=== PATIENT | female | born 1935 | race Caucasian/White ===

== ENCOUNTER 2017-09-24 05:29 | Day surgery (SDC) | payer MEDICARE, OTHER ==
[2017-09-22 13:10] LABS: BASOPHILS % (AUTO) 0.6 % (0-1); EOSINOPHILS # (AUTO) 0.2 X10'3 (0-0.9); EOSINOPHILS % (AUTO) 2.9 % (0-6); HEMOGLOBIN 13.4 g/dl (12.0-16.0); LYMPHOCYTES # (AUTO) 1.9 X10'3 (1.1-4.8); MEAN CORPUSCULAR HEMOGLOBIN 33.8 PG (27.0-31.0); MEAN CORPUSCULAR HGB CONC 34.3 % (33.0-36.5); MEAN CORPUSCULAR VOLUME 98.5 FL (78-98); MEAN PLATELET VOLUME 8.1 FL (7.4-10.4); MONOCYTES # (AUTO) 0.9 X10'3 (0-0.9); MONOCYTES % (AUTO) 11.8 % (2-12); NEUTROPHILS # (AUTO) 4.6 X10'3 (1.8-7.7); NEUTROPHILS % (AUTO) 59.7 % (42-75); PLATELET COUNT 222 X10'3 (140-440); RED BLOOD COUNT 3.96 X10'6 (4.20-5.60); RED CELL DISTRIBUTION WIDTH 13.6 % (11.5-14.5); WHITE BLOOD COUNT 7.7 X10'3 (4.5-11.0)
[2017-09-22 13:21] LABS: INR 1.3 INR; PARTIAL THROMBOPLASTIN TIME 26 SECONDS (22-32); PROTHROMBIN TIME 13.1 SECONDS (9.0-12.0)
[2017-09-22 13:26] LABS: ALANINE AMINOTRANSFERASE 36 U/L (12-78); ALBUMIN 3.6 G/DL (3.4-5.0); ALKALINE PHOSPHATASE 42 IU/L (46-116); ANION GAP 7 (8-16); ASPARTATE AMINO TRANSFERASE 21 U/L (10-37); BILIRUBIN,TOTAL 0.4 MG/DL (0.1-1.0); BLOOD UREA NITROGEN 19 MG/DL (7-18); CALCIUM 8.6 MG/DL (8.5-10.1); CHLORIDE 107 MMOL/L (99-107); GLUCOSE 98 MG/DL (70-104); POTASSIUM 4.4 MMOL/L (3.5-5.1); SODIUM 141 MMOL/L (135-145); TOTAL PROTEIN 7.1 G/DL (6.4-8.2); eGFR 53 ML/MIN
[~2017-09-24] VITALS: Ht 170.2 cm; Wt 83.2 kg
[2017-09-24] VITALS (12 sets, daily range): BP systolic 130–161; BP diastolic 72–110
[~2017-09-24 05:29] MED LIST: ALBU8.5H4 IH; CALC-787 PO; DRON400T2 PO; DRON400T6 PO; FURO-150 PO; GLUC-150 PO; HYDR-569 PO; LISI10TA4 PO; LOTE5DRO4 EACHEYE; METO-384 PO; MONT10TA21 PO; PANT40TA39 PO; ROSU5TAB18 PO; TRAM50TA2 PO; WARF3TAB7 PO
[2017-09-24] MEDS ORDERED: nitroGLYCERIN 0.4mg SUBLingual tab SL PRN (06:15)
[2017-09-24] MEDS ORDERED: normal saline 1000ml 1,000 ML IV SCH (06:15)
[2017-09-24] MEDS ORDERED: LORazepam 0.5 MG tablet PO PRN (06:15)
[2017-09-24] MEDS ORDERED: methylPREDNISolone sod succ 125mg/2ml vial IV PRN (06:15)
[2017-09-24] MEDS ORDERED: diphenhydrAMINE 25mg capsule PO PRN (06:15)
[2017-09-24] MEDS ORDERED: ROSU5TAB PO (06:19)
[2017-09-24] MEDS ORDERED: ESTR1VAG VG (06:19)
[2017-09-24] MEDS ORDERED: NIT5P TD (06:24)
[2017-09-24] MEDS ORDERED: ASCO1TAB42 PO (06:24)
[2017-09-24] MEDS ORDERED: PRED20TA PO (06:24)
[2017-09-24] MEDS ORDERED: ASCO-407 PO (06:24)
[2017-09-24] MEDS ORDERED: MAGN400C PO (06:24)
[2017-09-24] MEDS ORDERED: NORMAL SALINE IV ONE (08:00)
[2017-09-24] MEDS ORDERED: METHYLPREDNISOLONE SOD SUCC IV ONE (08:00)
[2017-09-24] MEDS ORDERED: fentaNYL/PF 50MCG/1 ML 2ML syringe ONE (08:22)
[2017-09-24] MEDS ORDERED: iohexol 350MG/ML 100ml bottle IV ONE (08:22)
[2017-09-24] MEDS ORDERED: iohexol 350 MG/ML 50ML vial IV ONE (08:22)
[2017-09-24] MEDS ORDERED: heparin 1,000 UNITS/NS 500ml 500 ML ONE (08:22)
[2017-09-24] MEDS ORDERED: midazolam 2 mg/2 ml injection ONE (08:22)
[2017-09-24] MEDS ORDERED: LIDOcaine 1% 30ml vial 30 ML ONE (08:23)
[2017-09-24] MEDS ORDERED: heparin 1,000unit/ml 10ml vial 10 ML ONE (08:51)
[2017-09-24] MEDS ORDERED: ondansetron/PF 4mg/2ml inj IV PRN (11:15)
[2017-09-24] MEDS ORDERED: OXAZEpam 15mg capsule PO PRN (11:15)
[2017-09-24] MEDS ORDERED: proCHLORperazine 10 MG/2 ml inj IV PRN (11:15)
[2017-09-24] MEDS ORDERED: sodium chloride 0.45% 1,000 ML IV SCH (11:20)
[2017-09-24] MEDS ORDERED: ACETYLCYSTEINE 200 MG/1 ML 4 ML ORAL SOLUTION PO SCH (20:00)
== END 2017-09-24 16:02 | disposition home or self-care (01) ==
LOC: SSTAY O 05:29
PROVIDERS: ATTEND Internal Medicine Cardiovascular Disease
DX: I25.10 Atherosclerotic heart disease of native coronary artery without angina pectoris (principal); I34.8 Other nonrheumatic mitral valve disorders; G43.909 Migraine, unspecified, not intractable, without status migrainosus; I48.91 Unspecified atrial fibrillation
CPT/HCPCS: 36415; 71046; 80053; 83880; 85025; 85610; 85730; 93459; A6257; C1760; C1769; J1644; J2250; J2930; J3010; J3490; J7030; Q0163; Q9967; 99152; A4620

== ENCOUNTER 2020-12-07 06:04 | Inpatient (IN) | payer MEDICARE, OTHER ==
[2020-11-30 16:41] LABS: BASOPHILS # (AUTO) 0.1 X10'3 (0-0.2); BASOPHILS % (AUTO) 0.7 % (0-1); EOSINOPHILS # (AUTO) 0.2 X10'3 (0-0.9); EOSINOPHILS % (AUTO) 2.6 % (0-6); LYMPHOCYTES # (AUTO) 1.7 X10'3 (1.1-4.8); LYMPHOCYTES % (AUTO) 22.8 % (21-51); MEAN CORPUSCULAR HEMOGLOBIN 34.4 PG (27.0-31.0); MEAN CORPUSCULAR HGB CONC 34.6 g/dL (33.0-36.5); MEAN CORPUSCULAR VOLUME 99.5 FL (78-98); MEAN PLATELET VOLUME 8.4 FL (7.4-10.4); MONOCYTES % (AUTO) 12.8 % (2-12); NEUTROPHILS # (AUTO) 4.7 X10'3 (1.8-7.7); NEUTROPHILS % (AUTO) 61.1 % (42-75); PRE OP HEMATOCRIT 37.5 % (35.0-45.0); PRE OP PLATELET COUNT 246 X10'3 (140-440); RED BLOOD COUNT 3.77 X10'6 (4.20-5.60); RED CELL DISTRIBUTION WIDTH 12.8 % (11.5-14.5)
[2020-11-30 16:56] LABS: PRE OP PROTIME 10.4 SECONDS (9.0-12.0)
[2020-11-30 17:01] LABS: BLOOD UREA NITROGEN 17 MG/DL (7-18); BUN/CREATININE RATIO 19.8 (6.6-38.0); CALCIUM 8.2 MG/DL (8.5-10.1); CHLORIDE 103 MMOL/L (99-107); CREATININE 0.86 MG/DL (0.40-0.90); TOTAL CARBON DIOXIDE 26.6 MMOL/L (24-32); eGFR 63 ML/MIN
[2020-11-30 17:02] LABS: ALBUMIN 3.6 G/DL (3.4-5.0); ALKALINE PHOSPHATASE 53 IU/L (46-116); PRE OP ALT 29 U/L (30-65); PRE OP BILIRUB, TOTAL 0.2 MG/DL (0.0-1.0)
[2020-11-30 17:40] LABS: PRE OP ANION GAP 11 (8-16); PRE OP AST 19 U/L (10-37); PRE OP GLUCOSE 101 MG/DL (70-104); PRE OP POTASSIUM 3.7 MMOL/L (3.4-5.1); PRE OP SODIUM 141 MMOL/L (135-145); TOTAL PROTEIN 7.3 G/DL (6.4-8.2)
[2020-12-07] VITALS (29 sets, daily range): BP systolic 106–168; BP diastolic 46–89
[~2020-12-07] VITALS: Ht 165.1 cm; Wt 77.1 kg
[~2020-12-07 06:04] MED LIST changes: -ALBU8.5H4 IH; +ASPI81TA52 PO; +CARV6.253 PO; +CITA20TA26 PO; +DOCUMENT DATE & TIME OF BETA-BLOCKER PO ONE; -DRON400T2 PO; -DRON400T6 PO; +FLUT16SP11 BOTHNARES; +FLUT1BLS3 INH; -FURO-150 PO; +FURO40TA4 PO; -GLUC-150 PO; -HYDR-569 PO; -LISI10TA4 PO; +LOSA25TA96 PO; -LOTE5DRO4 EACHEYE; +MULT-1085 PO; +POTA8CAP20 PO; +ROSU5TAB PO; -ROSU5TAB18 PO; -WARF3TAB7 PO; +cefazolin/dext.iso 2gm/100ml 100 ML IV ONE; +famotidine 20mg tablet PO ONE; +ringers solution, lacted 1,000 ML IV SCH
[2020-12-07] MEDS ORDERED: heparin 10,000 units/1 ML INJ ONE ×2 (06:47→17:55)
[2020-12-07] MEDS ORDERED: LIDOcaine 1% (10mg/ml) 2ml vial ONE (06:47)
[2020-12-07] MEDS ORDERED: iohexol 350 MG/ML 50ML vial IV ONE (07:59)
[2020-12-07] MEDS ORDERED: iohexol 350MG/ML 100ml bottle IV ONE (07:59)
[2020-12-07] MEDS ORDERED: fentaNYL/PF 50MCG/1 ML 2ML syringe ONE ×2 (08:12→10:37)
[2020-12-07] MEDS ORDERED: propofol inj 20 ML IV ONE (08:16)
[2020-12-07] MEDS ORDERED: LIDOcaine 2% (20mg/ml) 5ml vial ONE (08:16)
[2020-12-07] MEDS ORDERED: rocuronium 10mg/ml inj IV ONE ×2 (08:16→09:51)
[2020-12-07] MEDS ORDERED: heparin 1,000unit/ml 10ml vial 10 ML ONE (08:16)
[2020-12-07] MEDS ORDERED: ipratropium/albuterol 3ml nebule IH ONE (08:45)
[2020-12-07] MEDS ORDERED: sevoflurane 250ml liquid IH ONE (09:51)
[2020-12-07] MEDS ORDERED: nitroGLYCERIN-Tridil 50MG/D5W 250 ML IV SCH (10:15)
[2020-12-07] MEDS ORDERED: iohexol 300 MG/1 ML 50ml polymer ONE (10:30)
[2020-12-07] MEDS ORDERED: ondansetron/PF 4mg/2ml inj IV PRN ×2 (11:20→17:45)
[2020-12-07] MEDS ORDERED: ringers solution, lacted 1,000 ML IV SCH ×2 (11:20→17:45)
[2020-12-07] MEDS ORDERED: HYDROmorphone/PF 0.2 MG/ML SYRINGE IV PRN (11:20)
[2020-12-07] MEDS ORDERED: DexTRAN 40/D5W 500ml soln 500 ML IV SCH (12:15)
[2020-12-07] MEDS ORDERED: neostigmine methylsulfate 1 MG/ML 10ml vial ONE (13:43)
[2020-12-07] MEDS ORDERED: dexamethasone sod phosphate 4mg/ml inj. ONE (13:43)
[2020-12-07] MEDS ORDERED: ondansetron/PF 4mg/2ml inj ONE (13:43)
[2020-12-07] MEDS ORDERED: glycopyrrolate 0.2mg/ml inj ONE (13:43)
--- NOTE | 2020-12-07 13:53 | NUR ---
Received from OR via BED IN STABLE CONDITION , accompanied by Anesthesiologist and CLAIMS CONFIGURATION ANALYST report given by Anesthesilara. Addendum: 12/07/20 at 1456 by Makeda Ricketts RN Amended: Links added.
--- NOTE | 2020-12-07 14:07 | NUR ---
rECEIVED PT TO ROOM 2009 pt was on bipap 45% 24/10 rate of 30. Pt arouses to painful stimuli but did not respond appropriately. pt mumbles incoherently. lung sounds clear on left but very diminished on the right. noted very large bruise to the Right chest and back.
[2020-12-07] MEDS ORDERED: hydrALAZINE 20mg/ml inj. IV ONE (14:15)
[2020-12-07] MEDS: potassium CL 20mEq in D5-1/2NS 1,000 ML IV SCH ×2 (14:25→22:25)
[2020-12-07] MEDS: morphine 2 MG/ML inj. syringe IV PRN ×2 (14:38→15:09)
[2020-12-07] MEDS ORDERED: ceFAZolin inj. 1,000 MG in dextrose 5%-water 50ml 50 ML IV SCH (16:00)
--- NOTE | 2020-12-07 17:20 | NUR ---
Patient brought up to room 3013 by OR nurses; Shavon LAZARO. Patient was repositioned in the room and hooked up to vitals machine. During skin check at 1700, however, there was visible swelling to left lower leg (Dista l circumference; medial circumference; Proximal circumference; 23cm X 43cmx 42cm) with bleeding present saturating dressing and small amount of blood on sheets. Shavon RN was notified and called Christian LAZARO and Dr. Flor. Dr Flor rounded and recommended that patient be sent back to recovery to go the OR once again.
[2020-12-07] MEDS ORDERED: morphine 2 MG/ML inj. syringe IV PRN (17:45)
[2020-12-07] MEDS ORDERED: proCHLORperazine 10 MG/2 ml inj IV PRN (17:45)
[2020-12-07] MEDS ORDERED: morphine 4 MG/ML inj SYRINge IV PRN (17:45)
[2020-12-07] MEDS ORDERED: meperidine/PF 25mg/ml syringe IV PRN ×3 (17:45)
[2020-12-07 17:58] LABS: ISTAT CREATININE 0.7 mg/dL (0.6-1.1); ISTAT HGB 9.5 g/dl (12.0-16.0); ISTAT IONIZED CALCIUM 1.07 mmol/L (1.03-1.32); ISTAT K 3.2 mmol/L (3.5-5.1); POC BUN/CREATININE RATIO 15.7 (6.6-38.0)
[2020-12-07 18:03] LABS: PARTIAL THROMBOPLASTIN TIME 28 SECONDS (22-32)
[2020-12-07] MEDS ORDERED: midazolam 1 mg/ML 2ml injection ONE (18:25)
[2020-12-07] MEDS ORDERED: fentaNYL /PF 50mcg/ml 5ml ampule ONE (18:27)
[2020-12-07] MEDS ORDERED: ePHEDrine 50MG/ML INJ. ONE (18:39)
[2020-12-07] MEDS ORDERED: ceFAZolin 1000mg inj ONE ×2 (19:11)
--- NOTE | 2020-12-07 19:32 | NUR ---
Received from OR via BED , accompanied by Anesthesiologist ANANYA and report given by Anesthesiolgist. PT. ARIVED ON 10 L. MASK. ALERT, FC IN PLACE DRAINING TO GRAVITY, VSS. LEFT LEG ISLAND DRESSING DRAINAGE CONTAINED IN DRESSING, MARKED. L. GROIN PROVINA DRESSING WITH WOUND VAC AT 75 mmHG. NO DRAINAGE NOTED IN CANISTER. DEXTRAN RUNNING IN IN 18 G. IV IN R. HAND AT 80 ML/HR. ART. LINE IN R. WRIST. L. HAND 20 G. SALINE LOCKED. PT. REPORTS 03/03 PAIN IN LEFT KNEE CAP. WILL CONTINUE TO MONITOR AND REVIEW MEDICATIONS. Addendum: 12/07/20 at 1958 by Lea Jones RN Amended: Links added.
[2020-12-07] MEDS ORDERED: Potassium Cl inj 20 MEQ in ringers solution, lacted 1,000 ML IV ONE (19:55)
--- NOTE | 2020-12-07 20:20 | NUR ---
Patient in room MED 313. I have received report from Markie Paulson from recovery and had the opportunity to ask questions and assume patient care.
--- NOTE | 2020-12-07 20:22 | NUR ---
PATIENT HAS MET ALL CRITERIA FOR TRANSFER TO [facility]. DRESSINGS INTACT, DRAINAGE MARKED ON L. LE DRESSING. WOUND VAC TO LEFT GROIN AT 75 mmHG. LR WITH 20 ESTELA K+ AT 50 ML/HR. IN L. 28 G IV. DEXTRAN AT 80 ML/HR IN R. 18 G. IV. ART. LINE IN PLACE. FC DRAINING TO GRAVITY. PRN MORPHINE GIVEN FOR 03/03 L. KNEE PAIN. PT. STATES RELIEF 12/02. REPORT GIVEN TO GASTON LAZARO. BED LOW, CALL LIGHT PRESENT AND 2 RAILS UP. RN PRESENT TO ACCEPT CARE OF PATIENT. ALL QUESTIONS ANSWERED BY ACCEPTING RN. Addendum: 12/07/20 at 2028 by Lea Jones RN Amended: Links added.
[2020-12-07] MEDS: montelukast 10mg tablet PO SCH (20:37)
[2020-12-07] MEDS: pantoprazole 40mg Tablet.DR PO SCH (20:38)
[2020-12-07] MEDS: citalopram 20mg tablet PO SCH (20:38)
[2020-12-07] MEDS: carvedilol 6.25mg tablet PO SCH (20:38)
[2020-12-07] MEDS: ROSUVASTATIN 5 MG TAB PO SCH (20:42)
--- NOTE | 2020-12-07 20:44 | NUR ---
patient losartan 25 mg not scanning. Administered on the computer
[2020-12-07] MEDS: albuterol 2.5 MG/3 ML nebule NEB SCH (21:00)
[2020-12-07] MEDS: budesonide 0.5mg/2ml UD nebule IH SCH (21:00)
[2020-12-07] MEDS ORDERED: losartan 25mg tablet PO SCH (21:00)
[2020-12-07] MEDS: HYDROmorphone inj. 0.5 MG/0.5 ML DISP.SYRIN IV PRN (21:02)
[2020-12-08] VITALS (7 sets, daily range): BP systolic 104–133; BP diastolic 44–60
[2020-12-08] MEDS: ceFAZolin 1GM/D5W- ADD-VANTAGE 50 ML IV SCH ×2 (00:46→09:03)
--- NOTE | 2020-12-08 01:03 | NUR ---
Discussed with pharmacist regarding patient receiving dextran 40 in 10% d5. it is not visible if the OR recovery has given the first dose or not. therefore, to edge on the caution of not giving the med.
--- NOTE | 2020-12-08 01:03 | NUR ---
pharmacist said that rn can piggyback ancef with the potassium cloride 20 meq in d5w1/2ns was compatable.
[2020-12-08] MEDS: HYDROmorphone inj. 0.5 MG/0.5 ML DISP.SYRIN IV PRN (02:08)
[2020-12-08] MEDS: albuterol 2.5 MG/3 ML nebule NEB SCH ×4 (03:09→20:52)
[2020-12-08] MEDS: HYDROcodone/acetaminophen 10/325mg tab PO PRN ×3 (05:13→18:44)
[2020-12-08 06:17] LABS: BASOPHILS % (AUTO) 0.1 % (0-1); EOSINOPHILS % (AUTO) 0.2 % (0-6); HEMATOCRIT 23.5 % (35.0-45.0); LYMPHOCYTES # (AUTO) 1.1 X10'3 (1.1-4.8); LYMPHOCYTES % (AUTO) 10.5 % (21-51); MEAN CORPUSCULAR HEMOGLOBIN 33.8 PG (27.0-31.0); MEAN CORPUSCULAR VOLUME 99.2 FL (78-98); MEAN PLATELET VOLUME 8.6 FL (7.4-10.4); MONOCYTES # (AUTO) 1.4 X10'3 (0-0.9); MONOCYTES % (AUTO) 13.1 % (2-12); NEUTROPHILS # (AUTO) 8.1 X10'3 (1.8-7.7); NEUTROPHILS % (AUTO) 76.1 % (42-75); PLATELET COUNT 150 X10'3 (140-440); RED BLOOD COUNT 2.37 X10'6 (4.20-5.60); RED CELL DISTRIBUTION WIDTH 12.9 % (11.5-14.5); WHITE BLOOD COUNT 10.6 X10'3 (4.5-11.0)
--- NOTE | 2020-12-08 06:22 | NUR ---
Problems reprioritized. Patient report given, questions answered & plan of care reviewed with Tanna LAZARO.
[2020-12-08 06:31] LABS: ALBUMIN 2.2 G/DL (3.4-5.0); ANION GAP 5 (8-16); BLOOD UREA NITROGEN 13 MG/DL (7-18); BUN/CREATININE RATIO 18.3 (6.6-38.0); CALCIUM 7.4 MG/DL (8.5-10.1); CHLORIDE 106 MMOL/L (99-107); CREATININE 0.71 MG/DL (0.40-0.90); GLUCOSE 111 MG/DL (70-104); POTASSIUM 3.5 MMOL/L (3.5-5.1); SODIUM 140 MMOL/L (135-145); TOTAL CARBON DIOXIDE 29.5 MMOL/L (24-32); eGFR 78 ML/MIN
[2020-12-08] MEDS ORDERED: non-formulary drug (Fluticasone/Vilanterol (Breo Ellipta 200-25 Mcg INH) 1 PUFF) INH SCH (08:00)
[2020-12-08] MEDS: furosemide 40mg tablet PO SCH (08:53)
[2020-12-08] MEDS: multivitamins, therapeutics tablet PO SCH (08:53)
[2020-12-08] MEDS: pantoprazole 40mg Tablet.DR PO SCH ×2 (08:54→21:05)
[2020-12-08] MEDS: calcium carbonate/vitamin D3 tablet PO SCH (08:54)
[2020-12-08] MEDS: potassium chloride 8mEq ER tablet PO SCH (08:54)
[2020-12-08] MEDS: traMADol 50MG tablet PO SCH (08:56)
[2020-12-08] MEDS: carvedilol 6.25mg tablet PO SCH (08:56)
[2020-12-08] MEDS: budesonide 0.5mg/2ml UD nebule IH SCH ×2 (09:00→20:52)
[2020-12-08] MEDS: fluticasone nasal spray 16GM bottle NS SCH (09:01)
[2020-12-08] MEDS ORDERED: acetaminophen 325mg tablet PO PRN (09:35)
[2020-12-08] MEDS: aspirin 81mg tablet.DR PO SCH (09:51)
[2020-12-08] MEDS: DexTRAN 40/D5W 500ml soln 500 ML IV SCH ×2 (10:56→19:10)
--- NOTE | 2020-12-08 18:00 | NUR ---
Patient in room MED 313. I have received report from Tanna LAZARO and had the opportunity to ask questions and assume patient care.
[2020-12-08 18:24] LABS: BASOPHILS % (AUTO) 0.2 % (0-1); EOSINOPHILS # (AUTO) 0.1 X10'3 (0-0.9); HEMATOCRIT 22.7 % (35.0-45.0); HEMOGLOBIN 7.6 g/dl (12.0-16.0); LYMPHOCYTES # (AUTO) 1.2 X10'3 (1.1-4.8); LYMPHOCYTES % (AUTO) 13.1 % (21-51); MEAN CORPUSCULAR HEMOGLOBIN 33.9 PG (27.0-31.0); MEAN CORPUSCULAR HGB CONC 33.5 g/dL (33.0-36.5); MEAN CORPUSCULAR VOLUME 101.4 FL (78-98); MEAN PLATELET VOLUME 8.2 FL (7.4-10.4); MONOCYTES # (AUTO) 1.3 X10'3 (0-0.9); MONOCYTES % (AUTO) 13.8 % (2-12); NEUTROPHILS # (AUTO) 6.8 X10'3 (1.8-7.7); NEUTROPHILS % (AUTO) 71.9 % (42-75); PLATELET COUNT 136 X10'3 (140-440); RED BLOOD COUNT 2.24 X10'6 (4.20-5.60); RED CELL DISTRIBUTION WIDTH 13.2 % (11.5-14.5); WHITE BLOOD COUNT 9.4 X10'3 (4.5-11.0)
[2020-12-08] MEDS: clopidogrel 75mg tablet PO SCH (18:44)
[2020-12-08] MEDS ORDERED: lactobacillus rhamnosus 10,000 MMU CELLS/CAPSULE PO SCH (20:00)
[2020-12-08] MEDS: ROSUVASTATIN 5 MG TAB PO SCH (21:00)
[2020-12-08] MEDS: citalopram 20mg tablet PO SCH (21:05)
[2020-12-08] MEDS: montelukast 10mg tablet PO SCH (21:06)
[2020-12-08] MEDS: carVEDilol 3.125mg tablet PO SCH (21:06)
[2020-12-09] VITALS (11 sets, daily range): BP systolic 119–163; BP diastolic 45–74
[2020-12-09] MEDS: ceFAZolin/D5W- 1GM premix 50 ML IV SCH ×2 (00:35→08:38)
[2020-12-09] MEDS: DexTRAN 40/D5W 500ml soln 500 ML IV SCH ×2 (02:37→05:00)
[2020-12-09] MEDS: albuterol 2.5 MG/3 ML nebule NEB SCH ×4 (03:00→20:37)
--- NOTE | 2020-12-09 05:33 | NUR ---
patient nauseated, small amount of emesis and diarrhea x1, attempted to call Dr. Flor, redirected to Dr. Matthews aviation manager. Called Dr. Matthews, no response, will continue to contact Dr. Matthews to follow up with patient.
--- NOTE | 2020-12-09 06:37 | NUR ---
Problems reprioritized. Patient report given, questions answered & plan of care reviewed with Vaishali LAZARO.
[2020-12-09 07:27] LABS: BASOPHILS % (AUTO) 0.1 % (0-1); EOSINOPHILS % (AUTO) 0.2 % (0-6); HEMOGLOBIN 7.1 g/dl (12.0-16.0); LYMPHOCYTES # (AUTO) 0.8 X10'3 (1.1-4.8); LYMPHOCYTES % (AUTO) 7.8 % (21-51); MEAN CORPUSCULAR HEMOGLOBIN 35.1 PG (27.0-31.0); MEAN CORPUSCULAR HGB CONC 34.9 g/dL (33.0-36.5); MEAN CORPUSCULAR VOLUME 100.7 FL (78-98); MEAN PLATELET VOLUME 8.9 FL (7.4-10.4); MONOCYTES # (AUTO) 1.1 X10'3 (0-0.9); MONOCYTES % (AUTO) 10.3 % (2-12); NEUTROPHILS # (AUTO) 8.4 X10'3 (1.8-7.7); NEUTROPHILS % (AUTO) 81.6 % (42-75); PLATELET COUNT 119 X10'3 (140-440); RED BLOOD COUNT 2.01 X10'6 (4.20-5.60); RED CELL DISTRIBUTION WIDTH 12.8 % (11.5-14.5); WHITE BLOOD COUNT 10.3 X10'3 (4.5-11.0)
[2020-12-09 07:34] LABS: ALBUMIN 1.8 G/DL (3.4-5.0); ANION GAP 6 (8-16); BLOOD UREA NITROGEN 19 MG/DL (7-18); BUN/CREATININE RATIO 20.7 (6.6-38.0); CALCIUM 7.4 MG/DL (8.5-10.1); CHLORIDE 96 MMOL/L (99-107); CREATININE 0.92 MG/DL (0.40-0.90); GLUCOSE 146 MG/DL (70-104); POTASSIUM 3.2 MMOL/L (3.5-5.1); eGFR 58 ML/MIN
[2020-12-09 07:58] LABS: SODIUM 130 MMOL/L (135-145)
[2020-12-09 08:01] LABS: HEMATOCRIT 20.3 % (35.0-45.0)
[2020-12-09] MEDS: calcium carbonate/vitamin D3 tablet PO SCH (08:15)
[2020-12-09] MEDS: fluticasone nasal spray 16GM bottle NS SCH (08:15)
[2020-12-09] MEDS: potassium chloride 8mEq ER tablet PO SCH (08:16)
[2020-12-09] MEDS: carVEDilol 3.125mg tablet PO SCH ×2 (08:16→20:30)
[2020-12-09] MEDS: pantoprazole 40mg Tablet.DR PO SCH ×2 (08:18→19:17)
[2020-12-09] MEDS: multivitamins, therapeutics tablet PO SCH (08:18)
[2020-12-09] MEDS: furosemide 40mg tablet PO SCH (08:18)
[2020-12-09] MEDS: clopidogrel 75mg tablet PO SCH (08:18)
[2020-12-09] MEDS: traMADol 50MG tablet PO SCH (08:18)
[2020-12-09] MEDS: aspirin 81mg tablet.DR PO SCH (08:18)
[2020-12-09] MEDS: budesonide 0.5mg/2ml UD nebule IH SCH ×2 (08:57→20:37)
--- NOTE | 2020-12-09 09:00 | NUR ---
patient vomited large amount of food particles and some brownish particles, Dr Gil was paged and ordered a unit of bl;ood to be given. Dr gil also came and saw patient. I also showed Dr Gil the dressing on the leg that appears to be soaked in blood , Dr Gil said to just leave the dressing as it is.
--- NOTE | 2020-12-09 10:40 | NUR ---
Dr Guerrero came and saw patient and ordered another unit of blood.
--- NOTE | 2020-12-09 12:30 | NUR ---
Patient was eating jello and vomited moderate amount of brownish black vomitus
[2020-12-09] MEDS ORDERED: magnesium 4gm in 100ml NS 100 ML IV PRN (16:45)
[2020-12-09] MEDS: K and/or MAG REPLACEMENT MC SCH (16:45)
[2020-12-09] MEDS ORDERED: potassium Cl 20 mEq SR tablet PO PRN ×2 (16:45)
[2020-12-09] MEDS ORDERED: magnesium 2GM in 50ml NS 50 ML IV PRN (16:45)
[2020-12-09] MEDS ORDERED: potassium Cl 40MEQ/250ML bag 270 ML IV PRN (16:45)
[2020-12-09] MEDS ORDERED: magnesium Cl slow-release 64mg tablet PO PRN (16:45)
[2020-12-09] MEDS: pantoprazole 40MG/NS 100ML BAG 100 ML IV SCH ×3 (17:32→21:46)
--- NOTE | 2020-12-09 17:34 | NUR ---
PAGER ID: [phone] MESSAGE: 313 pt Wesly. HR fluctuating 80s up to 120s junctional to Afib. s/p 2 units, afebrile, otherwise asymptomatic, lungs clear. Want BNP? If elevated want diuretic? Renal fx okay. Will repeat H/H in 4hr. - Tanna [phone]
[2020-12-09] MEDS ORDERED: furosemide 40mg/4ml inj IV ONE (17:35)
--- NOTE | 2020-12-09 18:25 | NUR ---
Patient in room MED 313. I have received report from Vaishali LAZARO and had the opportunity to ask questions and assume patient care.
[2020-12-09] MEDS: potassium Cl 40MEQ/1/2NS 520ml 520 ML IV PRN (18:46)
[2020-12-09] MEDS: citalopram 20mg tablet PO SCH (20:30)
[2020-12-09] MEDS: montelukast 10mg tablet PO SCH (20:30)
[2020-12-09] MEDS: ROSUVASTATIN 5 MG TAB PO SCH (20:31)
--- NOTE | 2020-12-09 20:32 | NUR ---
patient home med rosuvastatin did not scan, administered on computer
--- NOTE | 2020-12-09 20:42 | NUR ---
PAGER ID: [phone] MESSAGE: Kaylyn Jarrellmisha, 85F, Left Fempop, 2 units blood today, 40 Lasix, 2L output in 2 hrs. Rapid Afib/flutter 130-140, BP 165/84. Earline [id number]
[2020-12-09] MEDS ORDERED: diltiazem 5mg/ml 5ml inj. IV ONE (21:05)
[2020-12-09] MEDS ORDERED: diltiazem CD 180mg cap (once-daily) PO ONE (21:05)
--- NOTE | 2020-12-09 21:05 | NUR ---
spoke to MD Velez regarding patient heart rate in 130-140 and BP 162/81 asymptomatic. MD ordered 10 IV cardizem one time give and cardizem CD 180 PO once. no new orders
[2020-12-09 21:10] LABS: HEMATOCRIT 32.8 % (35.0-45.0); HEMOGLOBIN 10.9 g/dl (12.0-16.0); MEAN CORPUSCULAR HEMOGLOBIN 32.5 PG (27.0-31.0); MEAN CORPUSCULAR HGB CONC 33.4 g/dL (33.0-36.5); MEAN CORPUSCULAR VOLUME 97.2 FL (78-98); MEAN PLATELET VOLUME 8.7 FL (7.4-10.4); PLATELET COUNT 154 X10'3 (140-440); RED BLOOD COUNT 3.37 X10'6 (4.20-5.60); RED CELL DISTRIBUTION WIDTH 13.9 % (11.5-14.5); WHITE BLOOD COUNT 13.8 X10'3 (4.5-11.0)
[2020-12-10] VITALS (11 sets, daily range): BP systolic 127–161; BP diastolic 52–81
[2020-12-10] MEDS: pantoprazole 40MG/NS 100ML BAG 100 ML IV SCH ×5 (02:50→21:00)
[2020-12-10] MEDS: albuterol 2.5 MG/3 ML nebule NEB SCH ×4 (03:13→21:11)
--- NOTE | 2020-12-10 06:23 | NUR ---
Problems reprioritized. Patient report given, questions answered & plan of care reviewed with Kati LAZARO.
--- NOTE | 2020-12-10 06:23 | NUR ---
Patient in room MED 313. I have received report from mark hung and had the opportunity to ask questions and assume patient care.
[2020-12-10 07:33] LABS: BASOPHILS % (AUTO) 0.1 % (0-1); EOSINOPHILS % (AUTO) 0.2 % (0-6); HEMATOCRIT 30.6 % (35.0-45.0); HEMOGLOBIN 10.3 g/dl (12.0-16.0); LYMPHOCYTES # (AUTO) 0.8 X10'3 (1.1-4.8); LYMPHOCYTES % (AUTO) 6.5 % (21-51); MEAN CORPUSCULAR HGB CONC 33.7 g/dL (33.0-36.5); MEAN PLATELET VOLUME 8.9 FL (7.4-10.4); MONOCYTES # (AUTO) 1.8 X10'3 (0-0.9); NEUTROPHILS # (AUTO) 10.1 X10'3 (1.8-7.7); NEUTROPHILS % (AUTO) 79.2 % (42-75); PLATELET COUNT 156 X10'3 (140-440); RED BLOOD COUNT 3.12 X10'6 (4.20-5.60); WHITE BLOOD COUNT 12.8 X10'3 (4.5-11.0)
[2020-12-10 07:51] LABS: ALBUMIN 2.1 G/DL (3.4-5.0); ANION GAP 8 (8-16); BLOOD UREA NITROGEN 12 MG/DL (7-18); BUN/CREATININE RATIO 16.7 (6.6-38.0); CALCIUM 8.3 MG/DL (8.5-10.1); CHLORIDE 103 MMOL/L (99-107); CREATININE 0.72 MG/DL (0.40-0.90); GLUCOSE 109 MG/DL (70-104); MAGNESIUM 1.8 MG/DL (1.5-2.4); SODIUM 139 MMOL/L (135-145); TOTAL CARBON DIOXIDE 27.8 MMOL/L (24-32); eGFR 77 ML/MIN
[2020-12-10] MEDS: fluticasone nasal spray 16GM bottle NS SCH (08:00)
[2020-12-10] MEDS: K and/or MAG REPLACEMENT MC SCH (08:00)
[2020-12-10] MEDS: potassium chloride 8mEq ER tablet PO SCH (08:00)
[2020-12-10] MEDS: traMADol 50MG tablet PO SCH (08:00)
[2020-12-10] MEDS: furosemide 40mg tablet PO SCH (08:00)
[2020-12-10] MEDS: carVEDilol 3.125mg tablet PO SCH ×2 (08:00→21:08)
[2020-12-10] MEDS: budesonide 0.5mg/2ml UD nebule IH SCH ×2 (08:15→21:11)
[2020-12-10] MEDS ORDERED: fentaNYL/PF 50MCG/1 ML 2ML syringe ONE (09:23)
[2020-12-10] MEDS ORDERED: LIDOcaine Viscous 15ml cup ONE (09:23)
[2020-12-10] MEDS ORDERED: MIDAZolam 1 MG/ML 5ML VIAL ONE (09:23)
[2020-12-10] MEDS: multivitamins, therapeutics tablet PO SCH (12:25)
[2020-12-10] MEDS: calcium carbonate/vitamin D3 tablet PO SCH (12:25)
[2020-12-10] MEDS: clopidogrel 75mg tablet PO SCH (12:25)
[2020-12-10] MEDS: potassium Cl 40MEQ/1/2NS 520ml 520 ML IV PRN ×2 (14:13→21:15)
--- NOTE | 2020-12-10 18:20 | NUR ---
Problems reprioritized. Patient report given, questions answered & plan of care reviewed with .mark ovalles
--- NOTE | 2020-12-10 18:41 | NUR ---
Patient in room MED 313. I have received report from Kati LAZARO and had the opportunity to ask questions and assume patient care. Patient to be on protonix
--- NOTE | 2020-12-10 19:16 | NUR ---
spoke to pharmacy. ok for potassium to be y-ported with the protonix. IV compatible
[2020-12-10] MEDS: montelukast 10mg tablet PO SCH (21:08)
[2020-12-10] MEDS: citalopram 20mg tablet PO SCH (21:08)
[2020-12-10] MEDS: ROSUVASTATIN 5 MG TAB PO SCH (21:09)
[2020-12-11] MEDS: pantoprazole 40MG/NS 100ML BAG 100 ML IV SCH ×3 (00:19→11:05)
[2020-12-11 02:00] VITALS: BP 148/58
[2020-12-11] MEDS: albuterol 2.5 MG/3 ML nebule NEB SCH ×4 (03:00→20:54)
[2020-12-11 06:00] VITALS: BP 144/67
[2020-12-11 06:10] LABS: ANION GAP 10 (8-16); BASOPHILS % (AUTO) 0.2 % (0-1); BLOOD UREA NITROGEN 11 MG/DL (7-18); BUN/CREATININE RATIO 15.1 (6.6-38.0); CHLORIDE 105 MMOL/L (99-107); CREATININE 0.73 MG/DL (0.40-0.90); EOSINOPHILS # (AUTO) 0.1 X10'3 (0-0.9); EOSINOPHILS % (AUTO) 1.2 % (0-6); GLUCOSE 108 MG/DL (70-104); HEMATOCRIT 29.1 % (35.0-45.0); HEMOGLOBIN 9.8 g/dl (12.0-16.0); LYMPHOCYTES # (AUTO) 0.8 X10'3 (1.1-4.8); MAGNESIUM 1.9 MG/DL (1.5-2.4); MEAN CORPUSCULAR HEMOGLOBIN 33.3 PG (27.0-31.0); MEAN CORPUSCULAR HGB CONC 33.8 g/dL (33.0-36.5); MEAN CORPUSCULAR VOLUME 98.6 FL (78-98); MEAN PLATELET VOLUME 8.9 FL (7.4-10.4); MONOCYTES # (AUTO) 1.6 X10'3 (0-0.9); MONOCYTES % (AUTO) 17.5 % (2-12); NEUTROPHILS # (AUTO) 6.7 X10'3 (1.8-7.7); NEUTROPHILS % (AUTO) 72.1 % (42-75); PLATELET COUNT 157 X10'3 (140-440); POTASSIUM 3.9 MMOL/L (3.5-5.1); RED BLOOD COUNT 2.95 X10'6 (4.20-5.60); SODIUM 139 MMOL/L (135-145); TOTAL CARBON DIOXIDE 24.4 MMOL/L (24-32); WHITE BLOOD COUNT 9.3 X10'3 (4.5-11.0); eGFR 76 ML/MIN
--- NOTE | 2020-12-11 06:18 | NUR ---
Problems reprioritized. Patient report given, questions answered & plan of care reviewed with Kati LAZARO.
--- NOTE | 2020-12-11 06:29 | NUR ---
Patient in room MED 313. I have received report from mark ovalles and had the opportunity to ask questions and assume patient care.
[2020-12-11] MEDS: budesonide 0.5mg/2ml UD nebule IH SCH ×2 (07:58→20:55)
[2020-12-11] MEDS: fluticasone nasal spray 16GM bottle NS SCH (08:00)
[2020-12-11] MEDS: K and/or MAG REPLACEMENT MC SCH (08:49)
[2020-12-11] MEDS: carVEDilol 3.125mg tablet PO SCH ×2 (08:50→21:18)
[2020-12-11] MEDS: furosemide 40mg tablet PO SCH (08:50)
[2020-12-11] MEDS: clopidogrel 75mg tablet PO SCH (08:50)
[2020-12-11] MEDS: calcium carbonate/vitamin D3 tablet PO SCH (08:50)
[2020-12-11] MEDS: traMADol 50MG tablet PO SCH (08:51)
[2020-12-11] MEDS: potassium chloride 8mEq ER tablet PO SCH (08:51)
[2020-12-11] MEDS: multivitamins, therapeutics tablet PO SCH (08:51)
[2020-12-11 10:14] LABS: PLATELET ESTIMATE NORMAL; TOTAL CELLS COUNTED 100
[2020-12-11 11:36] VITALS: BP 153/67
[2020-12-11 15:06] VITALS: BP 132/66
[2020-12-11 18:00] VITALS: BP 116/65
--- NOTE | 2020-12-11 18:00 | NUR ---
Patient in room MED 313. I have received report from TEJAS Parikh and had the opportunity to ask questions and assume patient care.
[2020-12-11] MEDS ORDERED: iohexol 350MG/ML 100ml bottle IV ONE (19:37)
[2020-12-11] MEDS ORDERED: iohexol 350 MG/ML 50ML vial IV ONE (19:37)
--- NOTE | 2020-12-11 19:45 | NUR ---
Pt left for CTA to lower extremity via wheel chair, no distress noted
--- NOTE | 2020-12-11 20:08 | NUR ---
Pt is back from CT in wheelchair, no sign of distress. Connected pt back onto monitor and wound vac.
[2020-12-11] MEDS: pantoprazole 40mg Tablet.DR PO SCH (21:18)
[2020-12-11] MEDS: montelukast 10mg tablet PO SCH (21:18)
[2020-12-11] MEDS: citalopram 20mg tablet PO SCH (21:18)
[2020-12-11] MEDS: ROSUVASTATIN 5 MG TAB PO SCH (21:19)
[2020-12-11 22:00] VITALS: BP 111/54
[2020-12-12 03:00] VITALS: BP 138/46
[2020-12-12] MEDS: albuterol 2.5 MG/3 ML nebule NEB SCH ×4 (03:00→20:48)
[2020-12-12 06:00] VITALS: BP 155/64
--- NOTE | 2020-12-12 06:15 | NUR ---
Patient in room MED 313. I have received report from mark Muro and had the opportunity to ask questions and assume patient care.
[2020-12-12 07:09] LABS: BASOPHILS % (AUTO) 0.4 % (0-1); EOSINOPHILS # (AUTO) 0.2 X10'3 (0-0.9); EOSINOPHILS % (AUTO) 2.1 % (0-6); HEMATOCRIT 31.2 % (35.0-45.0); HEMOGLOBIN 10.7 g/dl (12.0-16.0); LYMPHOCYTES # (AUTO) 1.1 X10'3 (1.1-4.8); LYMPHOCYTES % (AUTO) 12.7 % (21-51); MEAN CORPUSCULAR HEMOGLOBIN 33.6 PG (27.0-31.0); MEAN CORPUSCULAR HGB CONC 34.2 g/dL (33.0-36.5); MEAN CORPUSCULAR VOLUME 98.2 FL (78-98); MEAN PLATELET VOLUME 8.6 FL (7.4-10.4); MONOCYTES # (AUTO) 1.6 X10'3 (0-0.9); MONOCYTES % (AUTO) 17.7 % (2-12); NEUTROPHILS % (AUTO) 67.1 % (42-75); PLATELET COUNT 185 X10'3 (140-440); RED BLOOD COUNT 3.17 X10'6 (4.20-5.60); RED CELL DISTRIBUTION WIDTH 13.6 % (11.5-14.5)
[2020-12-12 07:36] LABS: ALBUMIN 2.1 G/DL (3.4-5.0); ANION GAP 9 (8-16); BLOOD UREA NITROGEN 14 MG/DL (7-18); BUN/CREATININE RATIO 19.2 (6.6-38.0); CALCIUM 8.5 MG/DL (8.5-10.1); CHLORIDE 103 MMOL/L (99-107); CREATININE 0.73 MG/DL (0.40-0.90); GLUCOSE 105 MG/DL (70-104); POTASSIUM 3.3 MMOL/L (3.5-5.1); SODIUM 138 MMOL/L (135-145); TOTAL CARBON DIOXIDE 26.3 MMOL/L (24-32); eGFR 76 ML/MIN
[2020-12-12] MEDS: budesonide 0.5mg/2ml UD nebule IH SCH ×2 (07:52→20:48)
[2020-12-12] MEDS: K and/or MAG REPLACEMENT MC SCH (08:00)
[2020-12-12] MEDS: fluticasone nasal spray 16GM bottle NS SCH (08:00)
[2020-12-12] MEDS: clopidogrel 75mg tablet PO SCH (09:14)
[2020-12-12] MEDS: potassium chloride 8mEq ER tablet PO SCH (09:14)
[2020-12-12] MEDS: calcium carbonate/vitamin D3 tablet PO SCH (09:15)
[2020-12-12] MEDS: multivitamins, therapeutics tablet PO SCH (09:15)
[2020-12-12] MEDS: carVEDilol 3.125mg tablet PO SCH ×2 (09:15→20:29)
[2020-12-12] MEDS: traMADol 50MG tablet PO SCH (09:16)
[2020-12-12] MEDS: pantoprazole 40mg Tablet.DR PO SCH ×2 (09:16→20:28)
[2020-12-12] MEDS: furosemide 40mg tablet PO SCH (09:16)
[2020-12-12 10:00] VITALS: BP 128/56
[2020-12-12 10:24] LABS: ANISOCYTOSIS 1+; PLATELET ESTIMATE NORMAL; TOTAL CELLS COUNTED 100
[2020-12-12 14:00] VITALS: BP 141/65
--- NOTE | 2020-12-12 14:22 | NUR ---
Initial: Pt admit DX PVD s/p L fem-fem bypass and peroneal endarterectomy per MD note. Pt started having coffee ground emesis post-op 12/08 DX UGIB, acute blood loss anemia, and gastritis/esophagitis per EMR. Pt advanced to regular diet 12/11 w/ clear liquid diet prior however no documentation of any PO intake this admit since 12/07 so unable to accurately determine nutrition status. Pt did PO 50% first documented meal breakfast today decent given age; ensure pudding BIDLD added to meals for additional protein/kcal needs. Dietary notified. LBM 12/11. Will continue to monitor for additional protein/kcal needs post-op. Rec: 1. continue regular diet; encourage PO 2. monitor for ONS needs; ensure pudding BIDLD pending further PO hx 3. routine bowel care 4. weekly wts Addendum: 12/12/20 at [address] Amended: Links added.
[2020-12-12 18:00] VITALS: BP 139/61
--- NOTE | 2020-12-12 18:00 | NUR ---
Patient in room MED 313. I have received report from TEJAS Parikh and had the opportunity to ask questions and assume patient care.
--- NOTE | 2020-12-12 18:30 | NUR ---
Dr. Lane visited pt by bedside advised that she will be D/C tomorrow
--- NOTE | 2020-12-12 18:31 | NUR ---
Problems reprioritized. Patient report given, questions answered & plan of care reviewed with TEJAS FAIRBANKS.
[2020-12-12] MEDS: citalopram 20mg tablet PO SCH (20:28)
[2020-12-12] MEDS: ROSUVASTATIN 5 MG TAB PO SCH (20:29)
[2020-12-12] MEDS: montelukast 10mg tablet PO SCH (20:30)
--- NOTE | 2020-12-12 22:00 | NUR ---
Pt advised to skip BP at 2200
[2020-12-13 02:00] VITALS: BP 138/59
[2020-12-13] MEDS: albuterol 2.5 MG/3 ML nebule NEB SCH ×2 (03:08→08:47)
--- NOTE | 2020-12-13 06:00 | NUR ---
Problems reprioritized. Patient report given, questions answered & plan of care reviewed with TEJAS Cheney.
[2020-12-13 06:17] LABS: POTASSIUM 3.1 MMOL/L (3.5-5.1)
--- NOTE | 2020-12-13 07:04 | NUR ---
RECEIVED REPORT FROM MAGDI RN, PT AWAKE, UPDATED THE BOARD
[2020-12-13 08:00] VITALS: BP 139/63
[2020-12-13] MEDS: fluticasone nasal spray 16GM bottle NS SCH (08:45)
[2020-12-13] MEDS: multivitamins, therapeutics tablet PO SCH (08:46)
[2020-12-13] MEDS: calcium carbonate/vitamin D3 tablet PO SCH (08:46)
[2020-12-13] MEDS: carVEDilol 3.125mg tablet PO SCH (08:46)
[2020-12-13] MEDS: traMADol 50MG tablet PO SCH (08:46)
[2020-12-13] MEDS: pantoprazole 40mg Tablet.DR PO SCH (08:46)
[2020-12-13] MEDS: furosemide 40mg tablet PO SCH (08:46)
[2020-12-13] MEDS: clopidogrel 75mg tablet PO SCH (08:46)
[2020-12-13] MEDS: budesonide 0.5mg/2ml UD nebule IH SCH (08:47)
[2020-12-13] MEDS: potassium chloride 8mEq ER tablet PO SCH (08:47)
[2020-12-13] MEDS: HYDROcodone/acetaminophen 10/325mg tab PO PRN (11:36)
[2020-12-13 12:50] VITALS: BP 140/65
== END 2020-12-13 14:21 | DRG 252 ==
LOC: PAS IN 06:04 → UNDOADMIN 06:04 → PAS IN 14:24 → MED 3N 14:49 → PACU 15:03 → MED 3N 15:11
PROVIDERS: ADMIT Surgery; ATTEND Family Medicine
PROC: 04CU0ZZ Extirpation of Matter from Left Peroneal Artery, Open Approach (ICD-10-PCS; 2020-12-07)
PROC: 04CL0ZZ Extirpation of Matter from Left Femoral Artery, Open Approach (ICD-10-PCS; 2020-12-07)
PROC: B41G1ZZ Fluoroscopy of Left Lower Extremity Arteries using Low Osmolar Contrast (ICD-10-PCS; 2020-12-07)
PROC: 0Y9J0ZZ Drainage of Left Lower Leg, Open Approach (ICD-10-PCS; 2020-12-07)
PROC: 041L0JM Bypass Left Femoral Artery to Peroneal Artery with Synthetic Substitute, Open Approach (ICD-10-PCS; principal; 2020-12-07 09:51)
PROC: 30233N1 Transfusion of Nonautologous Red Blood Cells into Peripheral Vein, Percutaneous Approach (ICD-10-PCS; 2020-12-09)
PROC: 0DJ08ZZ Inspection of Upper Intestinal Tract, Via Natural or Artificial Opening Endoscopic (ICD-10-PCS; 2020-12-10)
PROC: B42G1ZZ Computerized Tomography (CT Scan) of Left Lower Extremity Arteries using Low Osmolar Contrast (ICD-10-PCS; 2020-12-11)
DX: I73.9 Peripheral vascular disease, unspecified (principal); K20.91 Esophagitis, unspecified with bleeding; K29.71 Gastritis, unspecified, with bleeding; D62 Acute posthemorrhagic anemia; I10 Essential (primary) hypertension; I48.91 Unspecified atrial fibrillation; E78.5 Hyperlipidemia, unspecified; I25.10 Atherosclerotic heart disease of native coronary artery without angina pectoris; E87.6 Hypokalemia; Z20.822 Contact with and (suspected) exposure to COVID-19; Z90.710 Acquired absence of both cervix and uterus; Z90.49 Acquired absence of other specified parts of digestive tract; Z95.1 Presence of aortocoronary bypass graft; Z88.8 Allergy status to other drugs, medicaments and biological substances; Z79.82 Long term (current) use of aspirin; M79.89 Other specified soft tissue disorders
CPT/HCPCS: 36415; 36430; 43235; 71046; 73590; 73706; 75635; 76000; 80047; 80048; 80053; 82948; 83735; 84132; 85007; 85025; 85027; 85610; 85730; 86885; 86900; 86901; 86920; 87081; 87426; 93971; 94640; 94760; 97110; 97161; 97530; 99152; A4618; A4620; A6402; A6455; A7000; C1729; C1758; C1768; C9113; G0378; J0360; J0690; J1100; J1170; J1644; J1940; J2001; J2250; J2270; J2405; J2704; J2710; J3010; J3480; J3490; J7030; J7040; J7100; J7120; J7626; P9016; Q9967

== ENCOUNTER → 2021-01-01 | Outpatient (CLI) | payer MEDICARE, OTHER ==
[~2021-01-01] MED LIST changes: -DOCUMENT DATE & TIME OF BETA-BLOCKER PO ONE; -METO-384 PO; -cefazolin/dext.iso 2gm/100ml 100 ML IV ONE; -famotidine 20mg tablet PO ONE; -ringers solution, lacted 1,000 ML IV SCH
== END | disposition home or self-care (01) ==
LOC: VAS 08:47
PROVIDERS: ATTEND Surgery
DX: I73.9 Peripheral vascular disease, unspecified (principal)
CPT/HCPCS: 93926

== ENCOUNTER 2021-04-11 18:01 | Emergency (ER) | payer MEDICARE, OTHER ==
[~2021-04-11] VITALS: Ht 167.6 cm; Wt 77.3 kg
[2021-04-11] MEDS ORDERED: acetaminophen 325mg tablet PO ONE (18:55)
[2021-04-11] MEDS ORDERED: normal saline 1000ml 1,000 ML IV ONE (19:30)
[2021-04-11 19:35] LABS: BASOPHILS % (AUTO) 0.3 % (0-1); EOSINOPHILS # (AUTO) 0.1 X10'3 (0-0.9); EOSINOPHILS % (AUTO) 0.9 % (0-6); HEMATOCRIT 37.6 % (35.0-45.0); HEMOGLOBIN 12.9 g/dl (12.0-16.0); LYMPHOCYTES # (AUTO) 0.8 X10'3 (1.1-4.8); LYMPHOCYTES % (AUTO) 7.9 % (21-51); MEAN CORPUSCULAR HEMOGLOBIN 33.9 PG (27.0-31.0); MEAN CORPUSCULAR HGB CONC 34.3 g/dL (33.0-36.5); MEAN CORPUSCULAR VOLUME 98.9 FL (78-98); MEAN PLATELET VOLUME 8.7 FL (7.4-10.4); MONOCYTES # (AUTO) 1.1 X10'3 (0-0.9); MONOCYTES % (AUTO) 11.2 % (2-12); NEUTROPHILS # (AUTO) 7.8 X10'3 (1.8-7.7); NEUTROPHILS % (AUTO) 79.7 % (42-75); PLATELET COUNT 198 X10'3 (140-440); RED CELL DISTRIBUTION WIDTH 12.6 % (11.5-14.5); WHITE BLOOD COUNT 9.8 X10'3 (4.5-11.0)
[2021-04-11 19:44] LABS: ALANINE AMINOTRANSFERASE 24 U/L (12-78); ALBUMIN 3.6 G/DL (3.4-5.0); ALKALINE PHOSPHATASE 63 IU/L (46-116); ANION GAP 10 (8-16); ASPARTATE AMINO TRANSFERASE 23 U/L (10-37); BILIRUBIN,TOTAL 0.7 MG/DL (0.1-1.0); BLOOD UREA NITROGEN 19 MG/DL (7-18); BUN/CREATININE RATIO 20.4 (6.6-38.0); C-REACTIVE PROTEIN 1.83 MG/DL (0.0-0.5); CALCIUM 8.4 MG/DL (8.5-10.1); CHLORIDE 102 MMOL/L (99-107); CREATININE 0.93 MG/DL (0.40-0.90); FERRITIN 115 NG/ML (8-252); GLUCOSE 118 MG/DL (70-104); POTASSIUM 3.6 MMOL/L (3.5-5.1); SODIUM 139 MMOL/L (135-145); TOTAL CARBON DIOXIDE 27.4 MMOL/L (24-32); TOTAL PROTEIN 7.3 G/DL (6.4-8.2); eGFR 57 ML/MIN
[2021-04-11 19:51] LABS: D-DIMER 1.13 MG/L FEU (0-0.50)
[2021-04-11] MEDS ORDERED: CASIRIVIMAB (REGN10933) 1332MG 600 MG, IMDEVIMAB (REGN10987) 1332mg 600 MG in normal sa... IV ONE (19:55)
[2021-04-11] MEDS ORDERED: dexamethasone sod phosphate 10mg/ml inj IV STA (19:59)
[2021-04-11] MEDS ORDERED: ALBU8HFA PO (20:05)
[2021-04-11] MEDS ORDERED: iohexol 350MG/ML 100ml bottle IV ONE (20:32)
[2021-04-11] MEDS ORDERED: NS IV ONE ×3 (20:40)
[2021-04-11] MEDS ORDERED: albuterol 2.5 MG/3 ML nebule NEB PRN (20:40)
[2021-04-11] MEDS ORDERED: famotidine/PF 10 mg/ml inj IV PRN (20:40)
[2021-04-11] MEDS ORDERED: [UNRECOGNIZED DRUG - OTHER] IV ONE ×3 (20:40)
[2021-04-11] MEDS ORDERED: hydrocortisone sod succ/PF 100mg/2ml inj. IV PRN (20:40)
[2021-04-11] MEDS ORDERED: epiNEPHrine 1 mg/ml inj IM PRN (20:40)
[2021-04-11] MEDS ORDERED: acetaminophen 325mg tablet PO PRN (20:40)
[2021-04-11] MEDS ORDERED: diphenhydrAMINE 50 mg/ml inj IV PRN (20:40)
[2021-04-11] MEDS ORDERED: DEXA6TAB6 PO (21:29)
[2021-04-11 23:22] VITALS: BP 130/66
== END 2021-04-11 23:27 | disposition home or self-care (01) ==
LOC: ER 18:02
DX: U07.1 COVID-19 (principal); K44.9 Diaphragmatic hernia without obstruction or gangrene; I71.2 Thoracic aortic aneurysm, without rupture; R11.0 Nausea; R05 Cough; R50.9 Fever, unspecified; R51.9 Headache, unspecified; I48.91 Unspecified atrial fibrillation; I25.10 Atherosclerotic heart disease of native coronary artery without angina pectoris; E78.00 Pure hypercholesterolemia, unspecified; I10 Essential (primary) hypertension; J45.909 Unspecified asthma, uncomplicated; Z90.49 Acquired absence of other specified parts of digestive tract; Z90.710 Acquired absence of both cervix and uterus; Z98.890 Other specified postprocedural states; Z72.89 Other problems related to lifestyle; Z88.8 Allergy status to other drugs, medicaments and biological substances; Z79.82 Long term (current) use of aspirin; Z79.899 Other long term (current) drug therapy
CPT/HCPCS: 36415; 71045; 71275; 80053; 82728; 83605; 84145; 85025; 85379; 85384; 86140; 87040; 87635; 93005; 96361; 96374; 99285; C9803; J1100; J7030; M0243; Q0243; Q9967

== ENCOUNTER 2021-06-28 16:01 | Outpatient (CLI) | payer MEDICARE, OTHER ==
[~2021-06-28 16:01] MED LIST changes: +DEXA6TAB6 PO
== END 2021-06-28 23:59 | disposition home or self-care (01) ==
LOC: VAS 16:01
PROVIDERS: ATTEND Surgery
DX: I70.203 Unspecified atherosclerosis of native arteries of extremities, bilateral legs (principal)
CPT/HCPCS: 93922; 93925

== ENCOUNTER 2025-02-15 09:23 | Outpatient (CLI) | payer MEDICARE, OTHER ==
[~2025-02-15 09:23] MED LIST changes: +APIX5TAB3 PO; -ASPI81TA52 PO; -CALC-787 PO; +CITA20TA17 PO; -CITA20TA26 PO; -DEXA6TAB6 PO; -FLUT16SP11 BOTHNARES; +FLUT16SP26 BOTHNARES; +LOSA-415 PO; -LOSA25TA96 PO; +MAGN400C PO; +MONT-48 PO; -MONT10TA21 PO; +NITR1PAT63 TOP; -TRAM50TA2 PO; +omega PO; +tumeric PO
--- NOTE | 2025-02-15 15:25 | VASCULAR REPORT ---
EXAM: [facility] LAUREN ANKLE/BRACHIAL INDEX CLINICAL HISTORY: Lower extremity pain, bypass graft Peripheral vascular disease COMPARISON: LAUREN on DOS: 06/28/21 TECHNIQUE: Bilateral systolic ankle and brachial pressures are obtained, with ankle pulse volume waveforms and i ndices. FINDINGS: Pressures: Right Left Brachial 118 mmHg 124 mmHg PT 0 mmHg 0 mmHg DP 128 mmHg 70 mmHg LAUREN: Right Left 1.03 .56 Pulse volume waveforms: Monophasic in the left IMPRESSION: Right LAUREN, 1.03 -normal Left LAUREN, 0.56 suggesting moderate arterial disease at rest. 1.0-1.4: normal 0.91-0.99 borderline 0.9: abnormal (i.e. PAD) 0.4-0.9: [id number] PAD <0.4: suggestive of severe PAD
--- NOTE | 2025-02-15 15:29 | VASCULAR REPORT ---
Bilateral Lower Extremity Arterial Duplex Clinical History: Peripheral arterial disease Comparison: VL ARTERIAL on DOS: 06/28/21, VL ARTERIAL on DOS: 01/01/21 Technique: Duplex Doppler evaluation including color Doppler and spectral/pulsed waveform analysis of the lower extremity arteries was performed. Findings: RIGHT: Peak systolic velocities are as follows: JERSE[place] KNITTER 151 cm/s Deep femoral 89 cm/s SFA proximal 273 cm/s SFA mid-portion 232 cm/s SFA distal 95 cm/s Popliteal 74 cm/s Posterior tibial 0 cm/s Anterior tibial 64 cm/s Peroneal 50 cm/s Dorsalis pedis 64 cm/s The waveforms are multiphasic. LEFT: Peak systolic velocities are as follows: JERSEY KNITTER 88 cm/s Deep femoral 108 cm/s SFA proximal 0 cm/s SFA mid-portion 0 cm/s SFA distal 67 cm/s Popliteal 82 cm/s Posterior tibial 0 cm/s Anterior tibial 63 cm/s Peroneal 19 cm/s Dorsalis pedis 63 cm/s The waveforms are monophasic. IMPRESSION: Left tib fib bypass graft is occluded. Unable to visualize distal anastomosis. The left proximal to mid superficial femoral artery appears occluded with monophasic reconstituted fl ow in the left distal superficial femoral artery to the pedal artery. Bilateral distal posterior tibial arteries appear occluded. The right distal posterior tibial artery demonstrates reconstituted flow of the ankle. Moderate stenosis is noted within the right superficial femoral artery. Elevated velocities noted thr oughout the right mid superficial femoral artery. <150 cm/s - <20 % stenosis 150-200 cm/s - 20-49% stenosis 200-300 cm/s - 50-75% stenosis >300 cm/s -> 75% stenosis REFERENCE VALUES, [facility] ([facility]) vascular Imaging Lab Criteria: Peak systolic velocity rang es (in cm/sec) are as follows:
== END 2025-02-15 23:59 | disposition home or self-care (01) ==
LOC: VAS 09:23
PROVIDERS: ATTEND Surgery
DX: I73.9 Peripheral vascular disease, unspecified (principal)
CPT/HCPCS: 93922; 93925